=== PATIENT | male | born 1955 | race Caucasian/White ===

== ENCOUNTER → 2017-04-13 | Outpatient (CLI) | payer OTHER | LOC: COL.RAD 08:15 | DX: N20.0 Calculus of kidney (principal); N28.1 Cyst of kidney, acquired; K82.8 Other specified diseases of gallbladder ==

== ENCOUNTER → 2017-04-24 | Outpatient (CLI) | payer OTHER | LOC: COL.RAD 07:55 | DX: R10.11 Right upper quadrant pain (principal); R93.2 Abnormal findings on diagnostic imaging of liver and biliary tract | CPT/HCPCS: A9537 ==

== ENCOUNTER → 2017-05-12 | Outpatient (CLI) | payer OTHER ==
[~2017-05-12] VITALS: Ht 177.8 cm; Wt 84.1 kg
[~2017-05-12] MED LIST: ADALAT CC60 MG PO; PRILOSEC 20MG20 MG PO; TOPROL XL 50MG50 MG PO
[2017-05-12 10:21] VITALS: BP 151/95; PULSE 56
[2017-05-12 11:45] VITALS: BP 160/100; PULSE 49
[2017-05-12 11:50] VITALS: BP 150/100; PULSE 91
[2017-05-12 11:52] VITALS: BP 150/100; PULSE 70
== END ==
LOC: COL.CARD 09:47
DX: I10 Essential (primary) hypertension (principal); E78.00 Pure hypercholesterolemia, unspecified
CPT/HCPCS: A9502; J2785

== ENCOUNTER 2017-06-01 07:59 | Day surgery (SDC) | payer OTHER ==
[~2017-06-01] VITALS: Ht 177.8 cm; Wt 84.4 kg
[2017-06-01] VITALS (10 sets, daily range): BP systolic 111–139; BP diastolic 80–88; PULSE 50–56; TEMP 97.8
[2017-06-01 08:52] LABS: HEMATOCRIT 47.2 % (42.0-52.0); HEMOGLOBIN 16.6 g/dl (13.5-18.0); MEAN CELL VOLUME 93 fl (80.0-100.0); MEAN CORPUSCULAR HEMOGLOBIN 33 pg (27.0-31.0); MEAN CORPUSCULAR HGB CONC 35 g/dl (33.0-37.0); MEAN PLATELET VOLUME 10.1 fl (7.4-10.4); PLATELET COUNT 221 K/mm3 (130-400); RED BLOOD COUNT 5.09 M/mm3 (4.20-5.60); REDCELL DISTRIBUTION WIDTH-CV 12.2 % (11.5-14.5)
[2017-06-01] MEDS ORDERED: ASPIRIN 81M81 MG/TA2 PO (08:52)
[2017-06-01 08:59] LABS: CALCIUM 9.1 mg/dL (8.4-10.2); CREATININE, serum 0.99 mg/dL (0.66-1.25); POTASSIUM 4.6 mmol/L (3.4-5.0)
[2017-06-01] MEDS ORDERED: PLAVIX 75MG TAB75 MG PO (10:08)
== END 2017-06-01 14:45 | disposition home or self-care (01) ==
LOC: COL.CAR 07:59
PROVIDERS: Internal Medicine Cardiovascular Disease
DX: I25.110 Atherosclerotic heart disease of native coronary artery with unstable angina pectoris (principal); I10 Essential (primary) hypertension; Z90.49 Acquired absence of other specified parts of digestive tract; Z79.82 Long term (current) use of aspirin; Z79.01 Long term (current) use of anticoagulants; Z87.891 Personal history of nicotine dependence; Z82.49 Family history of ischemic heart disease and other diseases of the circulatory system; Z81.8 Family history of other mental and behavioral disorders
CPT/HCPCS: C1769; J1644; J2250; J3010; Q9967

== ENCOUNTER 2017-07-26 15:58 | Outpatient (RCR) | payer OTHER ==
[~2017-07-26 15:58] MED LIST changes: +ASPIRIN 81M81 MG/TA2 PO; +PLAVIX 75MG TAB75 MG PO
== END 2017-08-02 13:40 | disposition home or self-care (01) ==
LOC: COL.CR 15:58
DX: Z48.812 Encounter for surgical aftercare following surgery on the circulatory system (principal); Z95.5 Presence of coronary angioplasty implant and graft; I20.9 Angina pectoris, unspecified

== ENCOUNTER 2017-11-17 12:13 | Emergency (ER) | payer OTHER ==
[2017-11-17 12:17] VITALS: TEMP 98.3
[2017-11-17 12:38] LABS: BASO # 0.1 (0.0-0.2); BASO % 0.8 % (0.0-2.0); EOS # 0.1 (0.0-0.7); GRAN # 4.1 (1.4-6.5); GRAN % 65.2 % (42.2-75.2); HEMATOCRIT 45.5 % (42.0-52.0); HEMOGLOBIN 15.7 g/dl (13.5-18.0); LYMPH # 1.4 (1.2-3.4); LYMPH % 21.3 % (20.0-51.0); MEAN CELL VOLUME 92 fl (80.0-100.0); MEAN CORPUSCULAR HEMOGLOBIN 32 pg (27.0-31.0); MEAN CORPUSCULAR HGB CONC 35 g/dl (33.0-37.0); MEAN PLATELET VOLUME 9.3 fl (7.4-10.4); MONO # 0.7 (0.1-0.6); MONO % 10.4 % (1.7-9.3); PLATELET COUNT 190 K/mm3 (130-400); RED BLOOD COUNT 4.97 M/mm3 (4.20-5.60); REDCELL DISTRIBUTION WIDTH-CV 12.7 % (11.5-14.5)
[2017-11-17 12:49] LABS: ALBUMIN 3.9 gm/dL (3.5-5.0); BILIRUBIN,TOTAL 0.8 mg/dL (0.0-1.0); POTASSIUM 3.8 mmol/L (3.4-5.0); TOTAL PROTEIN 6.5 gm/dL (6.4-8.2)
[2017-11-17 14:47] LABS: COLLECTION METHOD CLEAN CATCH
[2017-11-17 15:09] LABS: PH 6 (5-8); SQUAMOUS EPITHELIAL None Seen /hpf; URINE APPEARANCE Clear; URINE BACTERIA None Seen /hpf; URINE BILIRUBIN Negative (NEGATIVE); URINE BLOOD Negative (NEGATIVE); URINE COLOR Straw; URINE GLUCOSE Negative (NEGATIVE); URINE KETONE Negative (NEGATIVE); URINE LEUKOCYTE ESTERASE Negative (NEGATIVE); URINE NITRATE Negative (NEGATIVE); URINE PROTEIN(semi-quant) Negative (NEGATIVE); URINE RBC 0-2 /hpf; URINE UROBILINOGEN Negative (NEGATIVE)
[2017-11-17 16:16] VITALS: BP 126/83; PULSE 50
== END 2017-11-17 16:17 | disposition home or self-care (01) ==
LOC: COL.ER 12:13
PROVIDERS: Emergency Medicine
DX: I10 Essential (primary) hypertension (principal); R51 Headache; Z79.82 Long term (current) use of aspirin; Z79.02 Long term (current) use of antithrombotics/antiplatelets

== ENCOUNTER 2018-01-23 14:17 | Observation (INO) | payer OTHER ==
[~2018-01-23] VITALS: Ht 177.8 cm; Wt 88.2 kg
[2018-01-23] MEDS ORDERED: LIPITOR20 MG PO (14:53)
[2018-01-23] MEDS ORDERED: EDARB4012.5TAB PO (14:53)
[2018-01-23] MEDS ORDERED: PLAVIX 75MG TAB75 MG PO (14:53)
[2018-01-23] MEDS ORDERED: CATAPRES 0.1MG0.1 MG PO (14:55)
[2018-01-23] MEDS ORDERED: BYSTOLIC10 MG PO (14:55)
[2018-01-23] MEDS ORDERED: ZYBAN150 M1 PO (14:55)
[2018-01-23 14:57] LABS: BASO % 0.5 % (0.0-2.0); EOS # 0.2 (0.0-0.7); EOS % 2.4 % (0-4.0); GRAN # 4.6 (1.4-6.5); GRAN % 69.2 % (42.2-75.2); HEMATOCRIT 44.7 % (42.0-52.0); HEMOGLOBIN 15.5 g/dl (13.5-18.0); LYMPH # 1.1 (1.2-3.4); LYMPH % 16.6 % (20.0-51.0); MEAN CELL VOLUME 91 fl (80.0-100.0); MEAN CORPUSCULAR HEMOGLOBIN 32 pg (27.0-31.0); MEAN CORPUSCULAR HGB CONC 35 g/dl (33.0-37.0); MEAN PLATELET VOLUME 9.4 fl (7.4-10.4); MONO # 0.7 (0.1-0.6); PLATELET COUNT 184 K/mm3 (130-400); PROTHROMBIN TIME 11.4 SECONDS (9.7-12.8); RED BLOOD COUNT 4.91 M/mm3 (4.20-5.60); REDCELL DISTRIBUTION WIDTH-CV 11.9 % (11.5-14.5)
[2018-01-23 15:04] LABS: ALANINE AMINOTRANSFERASE 30 U/L (21-72); ALBUMIN 3.8 gm/dL (3.5-5.0); ALKALINE PHOSPHATASE 100 U/L (50-136); ANION GAP 10 mmol/L (7-16); AST,SGOT 25 U/L (15-37); BILIRUBIN,TOTAL 0.6 mg/dL (0.0-1.0); BLOOD UREA NITROGEN 17 mg/dL (9-20); CALCIUM 8.9 mg/dL (8.4-10.2); CARBON DIOXIDE 30 mmol/L (22-30); CHLORIDE 99 mmol/L (98-107); CREATININE, serum 1.33 mg/dL (0.66-1.25); GLUCOSE 107 mg/dL (74-106); LIPASE 77 U/L (23-300); POTASSIUM 3.7 mmol/L (3.4-5.0); SODIUM 138 mmol/L (137-145); TOTAL PROTEIN 6.5 gm/dL (6.4-8.2)
[2018-01-23 15:16] LABS: TROPONIN-I < 0.012 ng/mL (0.000-0.034)
[2018-01-23 17:17] VITALS: BP 154/89; PULSE 57; TEMP 97.7
[2018-01-23 21:20] VITALS: BP 128/77; PULSE 52; TEMP 97.7
[2018-01-24 01:47] VITALS: BP 127/71; PULSE 53; TEMP 97.8
[2018-01-24 04:04] VITALS: PULSE 46
[2018-01-24 07:38] LABS: CALCIUM 8.5 mg/dL (8.4-10.2); CHOLESTEROL RISK RATIO 4.1; CREATININE, serum 1.09 mg/dL (0.66-1.25); POTASSIUM 4.3 mmol/L (3.4-5.0)
[2018-01-24 08:00] VITALS: BP 131/87; PULSE 51; TEMP 97.4
[2018-01-24 12:16] VITALS: BP 144/81; PULSE 45; TEMP 97.4
[2018-01-24] MEDS ORDERED: PREDNISONE20 MG PO (12:41)
== END 2018-01-24 13:57 | disposition home or self-care (01) ==
LOC: COL.ER 14:17 → MEDICAL 15:55
PROVIDERS: Emergency Medicine; Physician Assistant
DX: R29.810 Facial weakness (principal); I10 Essential (primary) hypertension; I25.10 Atherosclerotic heart disease of native coronary artery without angina pectoris; N17.9 Acute kidney failure, unspecified; J32.0 Chronic maxillary sinusitis; R00.1 Bradycardia, unspecified; Z95.5 Presence of coronary angioplasty implant and graft; Z79.82 Long term (current) use of aspirin; Z79.02 Long term (current) use of antithrombotics/antiplatelets; Z87.891 Personal history of nicotine dependence; Z82.3 Family history of stroke
CPT/HCPCS: A9585; G0378; G8978-GP; G8996-GN; G8997-GN; G8998-GN; J1644; J7030

== ENCOUNTER → 2023-05-11 | Outpatient (CLI) | payer MEDICARE ==
[~2023-05-11] MED LIST changes: +BYSTOLIC10 MG PO; +CATAPRES 0.1MG0.1 MG PO; +EDARB4012.5TAB PO; +LIPITOR20 MG PO; +PREDNISONE20 MG PO; +ZYBAN150 M1 PO
== END ==
LOC: COL.RAD 07:48
DX: N28.89 Other specified disorders of kidney and ureter (principal)
CPT/HCPCS: A9575